=== PATIENT | female | born 1990 | race Caucasian/White ===

== ENCOUNTER 2016-08-25 17:01 | Emergency (ER) | payer MEDICAID ==
[~2016-08-25] VITALS: Ht 152.4 cm; Wt 58.0 kg
[~2016-08-25 17:01] MED LIST: ACET500C5 PO; FAMO-18 PO; HYDR-906 PO; ONDA4TAB8 PO
[2016-08-25 17:03] VITALS: Ht 152.4 cm; Wt 58.0 kg
[2016-08-25] MEDS ORDERED: ONDANSETRON (ODT) 4 MG TAB ODT STA (17:32)
--- NOTE | 2016-08-25 17:37 | ERD ---
ER Documentation Chief Complaint Date/Time DATE: 08/25/16 TIME: 17:33 Chief Complaint pt bib self with c/o fever, cough, diarrhea for a few days HPI This is a 25-year-old female presents emergency department for fever, cough, vomiting and diarrhea 2 days. Patient states she had a temperature max of 10 4 F last night and took Tylenol. Patient states she takes Tylenol which reduces the temperature however the fever continues to return. Patient states she has a dry nonproductive cough. One episode of vomiting and diarrhea last night. No vomiting or diarrhea today. Tolerating p.o. Denies chest pain, wheezing, shortness of breath or difficulty breathing. No difficulty swallowing or drooling. Denies dysuria or hematuria. No abdominal pain. Last menstrual period 08/12/16. ROS All systems reviewed and are negative except as per history of present illness. Medications Home Meds Active Scripts Ondansetron Hcl* (Zofran*) 4 Mg Tablet, 4 MG PO Q6H for NAUSEA AND/OR VOMITING, #15 TAB Prov:JONNA ORLANDO NP 08/25/16 Ondansetron Hcl* (Zofran*) 4 Mg Tablet, 4 MG PO Q6H for NAUSEA AND/OR VOMITING, #30 TAB Prov:KEYANA HORNE PA-C 07/12/16 Famotidine* (Pepcid*) 20 Mg Tablet, 20 MG PO BID for 14 Days, TAB Prov:KEYANA HORNEC 07/12/16 Hydrocodone/Acetaminophen ([place] 5-325 Tablet) 1 Each Tablet, 1 TAB PO Q6H Y for PAIN, #20 TAB Prov:KEYANA HORNE PA-C 07/12/16 Acetaminophen* (Tylophen*) 500 Mg Capsule, 1 CAP PO Q6H Y for PAIN AND OR ELEVATED TEMP, #30 CAP Prov:KEYANA HORNE PA-C 03/01/16 Allergies Allergies: Coded Allergies: tramadol (Verified Allergy, Unknown, 07/12/16) PMhx/Soc History of Surgery: No Anesthesia Reaction: No Hx Neurological Disorder: No Hx Respiratory Disorders: No Hx Cardiac Disorders: No Hx Psychiatric Problems: No Hx Miscellaneous Medical Probl: Yes (gallstones.) Hx Alcohol Use: No Hx Substance Use: No Hx Tobacco Use: No Physical Exam Vitals Vital Signs Date Time Temp Pulse Resp B/P Pulse Ox O2 Delivery O2 Flow Rate FiO2 08/25/16 20:25 98.5 82 16 115/62 98 Room Air 08/25/16 17:03 98.5 86 16 117/66 98 Physical Exam Const: No acute distress, alert, smiling during exam Head: Atraumatic Eyes: Normal Conjunctiva ENT: Normal External Ears, Nose and Mouth. Erythema to posterior pharynx. TMs normal bilaterally. Neck: Full range of motion..~ No meningismus. Resp: Clear to auscultation bilaterally. No wheezing, rhonchi or crackles. No labored breathing. Cardio: Regular rate and rhythm, no murmurs Abd: Soft, non tender, non distended. Normal bowel sounds Skin: No petechiae or rashes Back: No midline or flank tenderness Ext: No cyanosis, or edema Neur: Awake and alert Psych: Normal Mood and Affect Results 24 hrs Laboratory Tests Test 08/25/16 17:46 Bedside Urine Blood Negative Bedside Urine Glucose (UA) Negative Bedside Urine Ketones (LAB) Negative Bedside Urine Leukocyte Esterase (L Negative Bedside Urine Nitrite (LAB) Negative Bedside Urine Protein (LAB) 1+ Bedside Urine pH (LAB) 6.5 Current Medications Medications (Trade) Dose Ordered Sig/Saida Route PRN Reason Start Time Stop Time Status Last Admin Dose Admin Ondansetron HCl (Zofran Odt) 4 mg ONCE STAT ODT 08/25/16 17:32 08/25/16 17:34 DC 08/25/16 17:47 Procedures/MDM ED COURSE: The patient was stable throughout ED course. I kept the patient and/or family informed of laboratory and diagnostic imaging results throughout the ED course. Laboratory Urine dip 1+ protein otherwise negative Urine negative Microbiology Influenza swab negative Strep pharyngitis negative MDM: 25-year-old female presents the emergency department for fever, cough, vomiting diarrhea 2 days. No fever upon arrival to ED. Temp is 98.5F. No vomiting or diarrhea today. Influenza and strep pharyngitis swabs are negative. Urine is negative for infection. No s/s respiratory distress. Vitals are stable. Low suspicion for pneumonia, pleural effusion, strep pharyngitis, otitis media, otitis externa, bowel obstruction or appendicitis. Patient is appropriate for outpatient management and instructed to follow up with PCP in the next 24-48hrs for reassessment. Return to ED for any new or worsening symptoms. Patient verbalizes understanding. All questions answered at discharge. Departure Diagnosis: Primary Impression: Viral gastroenteritis Condition: Stable JONNA ORLANDO NP Aug 25, 2016 17:37
[2016-08-25 17:45] LABS: URINE BLOOD (Dip) POC Negative (NEGATIVE)
[2016-08-25] MEDS ORDERED: ONDA4TAB8 PO (20:07)
[2016-08-25 20:25] VITALS: BP 115/62; PULSE 82; RESP 16; TEMP 98.5
== END 2016-08-25 20:29 | disposition home or self-care (01) ==
LOC: FTE 17:01
DX: J02.0 Streptococcal pharyngitis (principal); R11.2 Nausea with vomiting, unspecified
CPT/HCPCS: 81003; 87400; 87880; Z7502; Z7610; 99283

== ENCOUNTER 2016-09-15 10:22 | Emergency (ER) | payer MEDICAID ==
[~2016-09-15] VITALS: Ht 152.4 cm; Wt 57.0 kg
[2016-09-15 10:30] VITALS: Ht 152.4 cm; Wt 57.0 kg
[2016-09-15 11:22] LABS: URINE BLOOD (Dip) POC Negative (NEGATIVE)
[2016-09-15 11:51] LABS: ADD UMIC YES; URINE BILIRUBIN (Dip) NEGATIVE (NEGATIVE); URINE BLOOD (Dip) NEGATIVE (NEGATIVE); URINE COLOR LT. YELLOW (YELLOW); URINE GLUCOSE (Dip) NEGATIVE (NEGATIVE); URINE KETONES (Dip) NEGATIVE (NEGATIVE); URINE LEUKOCYTE ESTERASE (Dip) TRACE (NEGATIVE); URINE NITRITE (Dip) NEGATIVE (NEGATIVE); URINE TOTAL PROTEIN (Dip) NEGATIVE (NEGATIVE); URINE UROBILINOGEN (Dip) 0.2 E.U./dL (0.1-1.0)
[2016-09-15 11:53] LABS: ADD SCAN DIFF NO
[2016-09-15 11:58] LABS: BASOPHILS % 0.4 % (0.0-2.0); EOSINOPHILS # 0.1 10^3/ul (0.0-0.5); EOSINOPHILS % 0.9 % (0.0-7.0); HEMATOCRIT 37.5 % (37.0-47.0); HEMOGLOBIN 13.3 g/dl (12.0-16.0); LYMPHOCYTES # 1.4 10^3/ul (0.8-2.9); LYMPHOCYTES % 24.6 % (15.0-51.0); MEAN CORPUSCULAR HEMOGLOBIN 30.7 pg (29.0-33.0); MEAN CORPUSCULAR HGB CONC 35.5 g/dl (32.0-37.0); MEAN CORPUSCULAR VOLUME 86.6 fl (82.0-101.0); MEAN PLATELET VOLUME 10.6 fl (7.4-10.4); MONOCYTE # 0.5 10^3/ul (0.3-0.9); MONOCYTES % 8.4 % (0.0-11.0); NEUTROPHIL # 3.7 10^3/ul (1.6-7.5); NEUTROPHILS % 65.5 % (39.0-77.0); PLATELET COUNT 308 10^3/UL (140-415); RED BLOOD COUNT 4.33 10^6/ul (4.20-5.40); RED CELL DISTRIBUTION WIDTH 12.6 % (11.5-14.5); WHITE BLOOD COUNT 5.7 10^3/ul (4.8-10.8)
--- NOTE | 2016-09-15 11:59 | ERD ---
ER Documentation Chief Complaint Date/Time DATE: 09/15/16 TIME: 11:57 Chief Complaint pt bib family with c/o pelvic pain starting last night approx 5 wks preg HPI This a 25-year-old female who presents to the emergency department today complaining of some pelvic pain that started last night. Patient states she is a proximal 5 weeks . States the pain started when she was working in the [employer] department last night. Denies any vaginal bleeding, fevers or chills or dysuria ROS All systems reviewed and are negative except as per history of present illness. Medications Home Meds Active Scripts Nitrofurantoin Monohyd Macrocr* (Macrobid*) 100 Mg Capsr, 100 MG PO BID for 7 Days, CAP Prov:KEYANA HORNE PA-C 09/15/16 Acetaminophen* (Tylophen*) 500 Mg Capsule, 1 CAP PO Q6H Y for PAIN AND OR ELEVATED TEMP, #30 CAP Prov:KEYANA HORNEC 09/15/16 Ondansetron Hcl* (Zofran*) 4 Mg Tablet, 4 MG PO Q6H for NAUSEA AND/OR VOMITING, #15 TAB Prov:JONNA ORLANDO NP 08/25/16 Ondansetron Hcl* (Zofran*) 4 Mg Tablet, 4 MG PO Q6H for NAUSEA AND/OR VOMITING, #30 TAB Prov:KEYANA HORNEC 07/12/16 Famotidine* (Pepcid*) 20 Mg Tablet, 20 MG PO BID for 14 Days, TAB Prov:KEYANA HORNEC 07/12/16 Hydrocodone/Acetaminophen ([place] 5-325 Tablet) 1 Each Tablet, 1 TAB PO Q6H Y for PAIN, #20 TAB Prov:KEYANA HORNEC 07/12/16 Acetaminophen* (Tylophen*) 500 Mg Capsule, 1 CAP PO Q6H Y for PAIN AND OR ELEVATED TEMP, #30 CAP Prov:KEYANA HORNEC 03/01/16 Allergies Allergies: Coded Allergies: tramadol (Verified Allergy, Unknown, 07/12/16) PMhx/Soc Medical and Surgical Hx: pt denies Medical Hx, pt denies Surgical Hx History of Surgery: No Anesthesia Reaction: No Hx Neurological Disorder: No Hx Respiratory Disorders: No Hx Cardiac Disorders: No Hx Psychiatric Problems: No Hx Miscellaneous Medical Probl: Yes (gallstones. ectopic ) Hx Alcohol Use: No Hx Substance Use: No Hx Tobacco Use: No Physical Exam Vitals Vital Signs Date Time Temp Pulse Resp B/P Pulse Ox O2 Delivery O2 Flow Rate FiO2 09/15/16 10:30 98.0 77 16 109/58 99 Physical Exam Const: No acute distress Head: Atraumatic Eyes: Normal Conjunctiva ENT: Normal External Ears, Nose and Mouth. Neck: Full range of motion..~ No meningismus. Resp: Clear to auscultation bilaterally Cardio: Regular rate and rhythm, no murmurs Abd: Soft, mild suprapubic tenderness. non distended. Normal bowel sounds. No right lower quadrant pain. No left lower quadrant pain. No tenderness at McBurney's. Skin: No petechiae or rashes Neur: Awake and alert Psych: Normal Mood and Affect Result Diagram: 09/15/16 1140 Results 24 hrs Laboratory Tests Test 09/15/16 11:25 09/15/16 11:40 09/15/16 11:45 Bedside Urine Blood Negative Bedside Urine Glucose (UA) Negative Bedside Urine Ketones (LAB) Negative Bedside Urine Leukocyte Esterase (L Negative Bedside Urine Nitrite (LAB) Negative Bedside Urine Protein (LAB) Negative Bedside Urine pH (LAB) 6.0 Basophils # 0.010^3/ul Basophils % 0.4% Beta HCG, Quantitative 1815.7mIU/ml Eosinophils # 0.110^3/ul Eosinophils % 0.9% Hematocrit 37.5% Hemoglobin 13.3g/dl Lymphocytes # 1.410^3/ul Lymphocytes % 24.6% Mean Corpuscular Hemoglobin 30.7pg Mean Corpuscular Hemoglobin Concent 35.5g/dl Mean Corpuscular Volume 86.6fl Mean Platelet Volume 10.6fl Monocytes # 0.510^3/ul Monocytes % 8.4% Neutrophils # 3.710^3/ul Neutrophils % 65.5% Nucleated Red Blood Cells # 0.010^3/ul Nucleated Red Blood Cells % 0.0/100WBC Platelet Count 21206^3/UL Red Blood Count 4.3310^6/ul Red Cell Distribution Width 12.6% White Blood Count 5.710^3/ul Urine Bacteria OCCASIONAL Urine Bilirubin NEGATIVE Urine Clarity CLEAR Urine Color LT. YELLOW Urine Glucose NEGATIVE% Urine Hemoglobin NEGATIVE Urine Ketones NEGATIVE Urine Leukocyte Esterase TRACE Urine Microscopic RBC NONE SEEN/HPF Urine Microscopic WBC 0-2/HPF Urine Nitrite NEGATIVE Urine Specific [place] 1.010 Urine Squamous Epithelial Cells FEW Urine Total Protein NEGATIVE Urine Urobilinogen 0.2 E.U./dL Urine pH 6.0 Patient: MICHAEL LEE : 1990 Age: 25 Sex: F MR #: [id number] DOS: 09/15/16 1139 Ordering MD: KEYANA HORNE PA-C Location: [facility] Room/Bed: PROCEDURE: US Pelvis. CLINICAL INDICATION: Pelvic pain TECHNIQUE: Multiple sonographic images of the pelvis were obtained utilizing a transabdominal and endovaginal technique. The images were reviewed on a PACS workstation. COMPARISON: 03/04/2016 FINDINGS: The uterus is visualized and measures 7.1 x 4 x 4.8 cm in size. A small sonolucent structure in the endometrium is seen. There is a small amount of free fluid adjacent to the left ovary. The right ovary has a normal echotexture and measures 2.1 x 1.3 x 1.6 cm. Simple left ovarian cysts are seen with the largest measuring 2.3 x 1.8 cm in size which may represent dominant follicles. The remainder of the left ovary has a normal echotexture and measures 4.5 x 3.1 x 2.8 cm. No adnexal masses are noted. IMPRESSION: Small sonolucency in the endometrium which may represent an early . Correlation with serial beta HCG levels is suggested as well as a short interval follow-up. RPTAT: HPNM Physician Stephanie Date Time Electronically viewed and signed by Physician Stephanie on 09/15/2016 12 :20 / CC: KEYANA HORNE PA-C Procedures/MDM This a A2 25-year-old female who presents to the emergency department today complaining of pelvic pain. Patient indicated she was 5 weeks . Did obtain a test here in the emergency department was positive. I then obtained a complete OB workup. Laboratory work shows no elevated white blood cell count. She is not anemic. Platelets are within normal limits. UA shows trace leukocyte Estrace. Patient does have some suprapubic pain and therefore I will give her a prescription for Beta quant hCG 1815.7 Rh status be positive Ultrasound shows a small sonolucency in the endometrium which may represent an early . There is a simple left ovarian cyst. There is a small amount of free fluid around the left ovary. There is no adnexal masses. Correlation with serial beta hCG levels was recommended. Patient may follow-up in 48 hours for a repeat beta quant if symptoms persist. Patient's pelvic pain may be related to a possible urinary tract infection versus pelvic pain and . Patient has no right lower quadrant and no left lower quadrant pain of low suspicion for tubo-ovarian abscess, ovarian torsion, acute surgical abdomen. She has no vaginal bleeding and I have lower suspicion for early failed or subchorionic hemorrhage. She declined Tylenol here in the emergency department. I will give her a prescription for home. At this time the patient is stable for discharge and outpatient management. Patient should follow up with their PCP in the next 1-2 days. They may return to the emergency department sooner for any persistent or worsening of symptoms. Patient understood and agreed with the plan. Departure Diagnosis: Primary Impression: Pelvic pain during Additional Impression: UTI (urinary tract infection) Urinary tract infection type: site unspecified Hematuria presence: without hematuria Qualified Code: N39.0 - Urinary tract infection without hematuria, site unspecified Condition: KEYANA Roldan PA-C Sep 15, 2016 11:59
[2016-09-15 12:06] LABS: BACTERIA,URINE OCCASIONAL; SQUAMOUS EPITHELIAL CELL,UR FEW; URINE RBCS NONE SEEN /HPF (0)
--- NOTE | 2016-09-15 12:20 | RADRPT ---
PROCEDURE: US Pelvis. CLINICAL INDICATION: Pelvic pain TECHNIQUE: Multiple sonographic images of the pelvis were obtained utilizing a transabdominal and endovaginal technique. The images were reviewed on a PACS workstation. COMPARISON: 03/04/2016 FINDINGS: The uterus is visualized and measures 7.1 x 4 x 4.8 cm in size. A small sonolucent structure in the endometrium is seen. There is a small amount of free fluid adjacent to the left ovary. The right ova ry has a normal echotexture and measures 2.1 x 1.3 x 1.6 cm. Simple left ovarian cysts are seen wit h the largest measuring 2.3 x 1.8 cm in size which may represent dominant follicles. The remainder of the left ovary has a normal echotexture and measures 4.5 x 3.1 x 2.8 cm. No adnexal masses are n oted. IMPRESSION: Small sonolucency in the endometrium which may represent an early . Correlation with seria l beta HCG levels is suggested as well as a short interval follow-up. RPTAT: HPNM Physician Stephanie Date Time Electronically viewed and signed by Physician Stephanie on 09/15/2016 12:20 /
[2016-09-15] MEDS ORDERED: ACET500C5 PO (13:19)
[2016-09-15] MEDS ORDERED: NITR-58 PO (13:20)
[2016-09-15 13:30] VITALS: BP 112/59; PULSE 75; RESP 16; TEMP 98
== END 2016-09-15 13:30 | disposition home or self-care (01) ==
LOC: FTE 10:22
DX: O26.891 Other specified pregnancy related conditions, first trimester (principal); R10.2 Pelvic and perineal pain; O23.41 Unspecified infection of urinary tract in pregnancy, first trimester; Z3A.01 Less than 8 weeks gestation of pregnancy
CPT/HCPCS: 36415; 76801; 76817; 81001; 84702; 85025; 86900; 86901; Z7502; 81003

== ENCOUNTER 2016-10-09 02:48 | Inpatient (IN) | payer MEDICAID ==
[~2016-10-09] VITALS: Ht 152.4 cm; Wt 58.2 kg
[~2016-10-09 02:48] MED LIST changes: +NITR-58 PO
[2016-10-09 02:56] VITALS: Ht 152.4 cm; Wt 58.2 kg
[2016-10-09] MEDS ORDERED: ACETAMINOPHEN 325 MG TAB PO ONE (07:00)
[2016-10-09 07:01] LABS: ADD SCAN DIFF NO
[2016-10-09 07:03] LABS: ADD UMIC YES; URINE BILIRUBIN (Dip) NEGATIVE (NEGATIVE); URINE BLOOD (Dip) NEGATIVE (NEGATIVE); URINE COLOR LT. YELLOW (YELLOW); URINE GLUCOSE (Dip) NEGATIVE (NEGATIVE); URINE KETONES (Dip) NEGATIVE (NEGATIVE); URINE LEUKOCYTE ESTERASE (Dip) TRACE (NEGATIVE); URINE NITRITE (Dip) NEGATIVE (NEGATIVE); URINE TOTAL PROTEIN (Dip) NEGATIVE (NEGATIVE); URINE UROBILINOGEN (Dip) 0.2 E.U./dL (0.1-1.0)
[2016-10-09 07:03] LABS: BASOPHILS % 0.2 % (0.0-2.0); EOSINOPHILS # 0.1 10^3/ul (0.0-0.5); EOSINOPHILS % 0.6 % (0.0-7.0); HEMATOCRIT 35.8 % (37.0-47.0); HEMOGLOBIN 12.6 g/dl (12.0-16.0); LYMPHOCYTES # 1.2 10^3/ul (0.8-2.9); LYMPHOCYTES % 11.5 % (15.0-51.0); MEAN CORPUSCULAR HEMOGLOBIN 30.4 pg (29.0-33.0); MEAN CORPUSCULAR HGB CONC 35.2 g/dl (32.0-37.0); MEAN CORPUSCULAR VOLUME 86.3 fl (82.0-101.0); MEAN PLATELET VOLUME 10.6 fl (7.4-10.4); MONOCYTE # 0.6 10^3/ul (0.3-0.9); MONOCYTES % 5.6 % (0.0-11.0); NEUTROPHIL # 8.8 10^3/ul (1.6-7.5); NEUTROPHILS % 81.6 % (39.0-77.0); PLATELET COUNT 315 10^3/UL (140-415); RED BLOOD COUNT 4.15 10^6/ul (4.20-5.40); RED CELL DISTRIBUTION WIDTH 12.3 % (11.5-14.5); WHITE BLOOD COUNT 10.8 10^3/ul (4.8-10.8)
[2016-10-09 07:13] LABS: ALBUMIN 3.9 g/dl (3.3-4.9)
[2016-10-09 07:14] LABS: POTASSIUM 4.1 mmol/L (3.5-5.1)
[2016-10-09 07:16] LABS: BILIRUBIN,INDIRECT 0.2 mg/dl (0-1.1); BILIRUBIN,TOTAL 0.2 mg/dl (0.2-1.3); CREATININE 0.55 mg/dl (0.44-1.00)
[2016-10-09 07:17] LABS: ALBUMIN/GLOBULIN RATIO 1.25; CALCIUM 9.8 mg/dl (8.4-10.2)
[2016-10-09 07:23] LABS: SQUAMOUS EPITHELIAL CELL,UR FEW; URINE RBCS NONE SEEN /HPF (0)
--- NOTE | 2016-10-09 07:58 | RADRPT ---
PROCEDURE: US Abdomen. CLINICAL INDICATION: abdominal pain TECHNIQUE: Multiple real-time images were acquired of the patient's right upper quadrant abdomen a nd retroperitoneum utilizing a high resolution transducer. COMPARISON: 07/12/2016 FINDINGS: The liver demonstrates normal echogenicity. The liver is normal in size and no focal solid lesions are seen. The liver measures 13.2 cm in length. The portal vein is patent with normal direction of f low. No intrahepatic biliary dilatation is seen. The gallbladder is filled with multiple calcified stones. The gallbladder wall was not well seen. Th e common bile duct measures 8 mm in maximal dimension. The visualized portions of the pancreas are unremarkable. The tail of the pancreas is not seen. No free fluid is identified. The right kidney is normal in size, and demonstrate normal echogenicity and cortical thickness. The right kidney measures 13.2 cm in long dimension. There is no evidence of hydronephrosis. There are no kidney stones. RPTAT: AA IMPRESSION: Gallbladder filled with calcified stones, which limits its evaluation. The gallbladder wall is not well seen. Dilated CBD measuring 8 mm. .Preet Nunez MD, MD Date Time Electronically viewed and signed by .Preet Nunez MD, on 10/09/2016 07:54 .S/
--- NOTE | 2016-10-09 08:48 | ERA ---
ER Documentation Chief Complaint Date/Time DATE: 10/09/16 TIME: 08:40 Chief Complaint C/O RT FLANK PAIN +NAUSEA 8 WEEKS HPI 26-year-old female who is approximately 8 weeks is complaining of right upper quadrant abdominal pain and right flank pain 2 days. Patient reports nausea but no vomiting. She has history of gallstones. She did not take any medication at home for pain. She also has slight dysuria. Denies fever or chills. Denies diarrhea or constipation. Denies vaginal bleeding. ROS All systems reviewed and are negative except as per history of present illness. Medications Home Meds Active Scripts Nitrofurantoin Monohyd Macrocr* (Macrobid*) 100 Mg Capsr, 100 MG PO BID for 7 Days, CAP Prov:KEYANA HORNEC 09/15/16 Acetaminophen* (Tylophen*) 500 Mg Capsule, 1 CAP PO Q6H Y for PAIN AND OR ELEVATED TEMP, #30 CAP Prov:KEYANA HORNEC 09/15/16 Ondansetron Hcl* (Zofran*) 4 Mg Tablet, 4 MG PO Q6H for NAUSEA AND/OR VOMITING, #15 TAB Prov:JONNA ORLANDO NP 08/25/16 Ondansetron Hcl* (Zofran*) 4 Mg Tablet, 4 MG PO Q6H for NAUSEA AND/OR VOMITING, #30 TAB Prov:KEYANA HORNEC 07/12/16 Famotidine* (Pepcid*) 20 Mg Tablet, 20 MG PO BID for 14 Days, TAB Prov:KEYANA HORNEC 07/12/16 Hydrocodone/Acetaminophen ([place] 5-325 Tablet) 1 Each Tablet, 1 TAB PO Q6H Y for PAIN, #20 TAB Prov:KEYANA HORNEC 07/12/16 Acetaminophen* (Tylophen*) 500 Mg Capsule, 1 CAP PO Q6H Y for PAIN AND OR ELEVATED TEMP, #30 CAP Prov:KEYANA HORNEC 03/01/16 Allergies Allergies: Coded Allergies: tramadol (Verified Allergy, Unknown, 07/12/16) PMhx/Soc Medical and Surgical Hx: pt denies Medical Hx, pt denies Surgical Hx History of Surgery: No Anesthesia Reaction: No Hx Neurological Disorder: No Hx Respiratory Disorders: No Hx Cardiac Disorders: No Hx Psychiatric Problems: No Hx Miscellaneous Medical Probl: Yes (gallstones. ectopic ) Hx Alcohol Use: No Hx Substance Use: No Hx Tobacco Use: No Smoking Status: Never smoker Physical Exam Vitals Vital Signs Date Time Temp Pulse Resp B/P Pulse Ox O2 Delivery O2 Flow Rate FiO2 10/09/16 02:56 97.0 67 20 112/51 97 Physical Exam General impression: Well-developed, well-nourished. Alert, oriented, in no acute distress Head: Normocephalic, atraumatic. Eyes: PERRL, EOM normal. Conjunctiva not injected. Respiration: Normal respiratory effort. Lungs clear to auscultate bilaterally. No wheezes, rales or rhonchi. Cardiovascular: Regular rate and rhythm. No murmurs or extra heart sounds. Abdomen: Abdomen normal to inspection. Right upper quadrant tenderness, no other tenderness. No rebound or guarding. No masses or organomegaly. Bowel sounds normal. Back: Normal to inspection. No midline spine tenderness. Right CVA tenderness. Neuro: Mental status normal, speech normal. [employer] grossly intact. Skin: Normal turgor. No rash or lesions. Psych: Normal mood and affect. Result Diagram: 10/09/16 0650 10/09/16 0650 Results 24 hrs Laboratory Tests Test 10/09/16 06:10 10/09/16 06:50 Urine Bilirubin NEGATIVE Urine Clarity CLEAR Urine Color LT. YELLOW Urine Glucose NEGATIVE% Urine Hemoglobin NEGATIVE Urine Ketones NEGATIVE Urine Leukocyte Esterase TRACE Urine Microscopic RBC NONE SEEN/HPF Urine Microscopic WBC 0-2/HPF Urine Nitrite NEGATIVE Urine Specific [place] 1.010 Urine Squamous Epithelial Cells FEW Urine Total Protein NEGATIVE Urine Urobilinogen 0.2 E.U./dL Urine pH 6.0 Alanine Aminotransferase (ALT/SGPT) 32IU/L Albumin 3.9g/dl Albumin/Globulin Ratio 1.25 Alkaline Phosphatase 63IU/L Anion Gap 14 Aspartate Amino Transf (AST/SGOT) 29IU/L Basophils # 0.010^3/ul Basophils % 0.2% Beta HCG, Quantitative 001793.0mIU/ml Blood Urea Nitrogen 9mg/dl Calcium Level 9.8mg/dl Carbon Dioxide Level 28mmol/L Chloride Level 105mmol/L Creatinine 0.55mg/dl Direct Bilirubin 0.00mg/dl Eosinophils # 0.110^3/ul Eosinophils % 0.6% Globulin 3.10g/dl Glucose Level 93mg/dl Hematocrit 35.8% Hemoglobin 12.6g/dl Indirect Bilirubin 0.2mg/dl Lipase 2948U/L Lymphocytes # 1.210^3/ul Lymphocytes % 11.5% Mean Corpuscular Hemoglobin 30.4pg Mean Corpuscular Hemoglobin Concent 35.2g/dl Mean Corpuscular Volume 86.3fl Mean Platelet Volume 10.6fl Monocytes # 0.610^3/ul Monocytes % 5.6% Neutrophils # 8.810^3/ul Neutrophils % 81.6% Nucleated Red Blood Cells # 0.010^3/ul Nucleated Red Blood Cells % 0.0/100WBC Platelet Count 01705^3/UL Potassium Level 4.1mmol/L Red Blood Count 4.1510^6/ul Red Cell Distribution Width 12.3% Sodium Level 143mmol/L Total Bilirubin 0.2mg/dl Total Protein 7.0g/dl White Blood Count 10.810^3/ul Current Medications Medications (Trade) Dose Ordered Sig/Saida Route PRN Reason Start Time Stop Time Status Last Admin Dose Admin Acetaminophen (Tylenol Tab) 650 mg ONCE ONCE PO 10/09/16 07:00 10/09/16 07:01 DC 10/09/16 07:01 PROCEDURE: US Abdomen. CLINICAL INDICATION: abdominal pain TECHNIQUE: Multiple real-time images were acquired of the patient's right upper quadrant abdomen and retroperitoneum utilizing a high resolution transducer. COMPARISON: 07/12/2016 FINDINGS: The liver demonstrates normal echogenicity. The liver is normal in size and no focal solid lesions are seen. The liver measures 13.2 cm in length. The portal vein is patent with normal direction of flow. No intrahepatic biliary dilatation is seen. The gallbladder is filled with multiple calcified stones. The gallbladder wall was not well seen. The common bile duct measures 8 mm in maximal dimension. The visualized portions of the pancreas are unremarkable. The tail of the pancreas is not seen. No free fluid is identified. The right kidney is normal in size, and demonstrate normal echogenicity and cortical thickness. The right kidney measures 13.2 cm in long dimension. There is no evidence of hydronephrosis. There are no kidney stones. RPTAT: AA IMPRESSION: Gallbladder filled with calcified stones, which limits its evaluation. The gallbladder wall is not well seen. Dilated CBD measuring 8 mm. .Preet Nunez MD, Date Time Electronically viewed and signed by .Preet Nunez MD, on 10/09/2016 07: 54 .S/ CC: VERONICA RODRIGUEZ [employer] Procedures/MDM Well-appearing 26-year-old female who is approximately 8 weeks reports right upper quadrant abdominal pain 2 days. Gallbladder ultrasound showed gallbladder full of stones, common bile duct is dilated at 8 mm. WBC is 10.8, with slightly higher neutrophil at 81.6%. No elevated AST or ALT. However, lipase is significantly elevated at 2948. High suspicion for cholelithiasis and cholecystitis with obstruction. UA showed trace leukocyte, otherwise negative. No bacteria is seen. Low suspicion for urinary tract infection. Her beta hCG quant is 102297.0, within normal range for her gestational age. I have consulted Dr. Retana regarding this patient. Patient will be admitted for further evaluation or management. Patient transferred to ED 1 for admission. Patient condition at time of transfer is stable. Departure Diagnosis: Primary Impression: Cholelithiasis and acute cholecystitis with obstruction Condition: Good VERONICA RODRIGUEZ NP Oct 09, 2016 08:48
[2016-10-09] MEDS ORDERED: morphine 4 MG/ML VIAL IV STA (09:25)
[2016-10-09] MEDS ORDERED: ONDANSETRON 4 MG INJ IV STA (09:25)
[2016-10-09] MEDS ORDERED: SOD CHLORIDE 0.9% 1,000 ML IV ONE (09:30)
[2016-10-09] MEDS ORDERED: ONDANSETRON 4 MG INJ IV PRN ×2 (11:00→16:00)
[2016-10-09] MEDS ORDERED: ACETAMINOPHEN 325 MG TAB PO PRN ×2 (11:00→16:00)
--- NOTE | 2016-10-09 12:50 | CONS ---
Date/Time of Note Date/Time of Note DATE: 10/09/16 TIME: 12:40 Assessment/Plan Assessment/Plan Additional Assessment/Plan Abdomina pain/nausea/vomiting Pancreatitis Rule out choledocholithiasis IVF Hydration Nausea and pain control NPO till pain free Review MRCP ERCP if clinically indicated, pt advised of R/B/A of procedure and she provides informed consent to proceed Monitor LFTs, amylase, lipase Intrauterine Management per BAGGING SALVAGER Further recommendations depend on clinical course Patient seen in collaboration with Dr. Higgins Consultation Date/Type/Reason Admit Date/Time Type of Consultation: Gastroenteritis Reason for Consultation Pancreatitis Hx of Present Illness Mrs Jayashree Wilson is a 26-year-old woman that presents to the ED secondary to intense abdominal pain that started earlier in the a.m. Patient denies nausea and vomiting. Patient denies sick contact, travel outside [place], alcohol consumption, and new medication. Patient reports previous episode in July and the previous episode of cholecystitis close to 5 years ago. The patient declined surgical cholecystectomy. At bedside patient reports right upper quadrant abdominal pain and epigastric pain. MRCP in process and patient currently awaiting transfer to unit. Past Medical History Medical History: no pertinent history Past Surgical History Past Surgical Hx: noncontributory Social History Alcohol Use: none Smoking Status: Never smoker Exam/Review of Systems Vital Signs Vitals Vital Signs Date Time Temp Pulse Resp B/P Pulse Ox O2 Delivery O2 Flow Rate FiO2 10/09/16 02:56 97.0 67 20 112/51 97 Exam Constitutional: alert, oriented, well developed Psych: nl mood/affect Head: normocephalic Eyes: EOMI, nl conjunctiva, nl lids ENMT: nl external ears & nose, nl lips & teeth, nl nasal mucosa & septum Respiratory: clear to auscultation, normal air movement Cardiovascular: regular rate and rhythm Gastrointestinal: soft, right upper quadrant, epigastric tenderness Musculoskeletal: nl extremities to inspection Neurological: GLOST PLACER II-XII intact Results Result Diagram: 10/09/16 0650 10/09/16 0650 Results 24 hrs Laboratory Tests Test 10/09/16 06:10 10/09/16 06:50 Urine Bilirubin NEGATIVE Urine Clarity CLEAR Urine Color LT. YELLOW Urine Glucose NEGATIVE Urine Hemoglobin NEGATIVE Urine Ketones NEGATIVE Urine Leukocyte Esterase TRACE H Urine Microscopic RBC NONE SEEN Urine Microscopic WBC 0-2 Urine Nitrite NEGATIVE Urine Specific [place] 1.010 Urine Squamous Epithelial Cells FEW Urine Total Protein NEGATIVE Urine Urobilinogen 0.2 E.U./dL Urine pH 6.0 Alanine Aminotransferase (ALT/SGPT) 32 Albumin 3.9 Albumin/Globulin Ratio 1.25 Alkaline Phosphatase 63 Anion Gap 14 Aspartate Amino Transf (AST/SGOT) 29 Basophils # 0.0 Basophils % 0.2 Beta HCG, Quantitative 412562.0 Blood Urea Nitrogen 9 Calcium Level 9.8 Carbon Dioxide Level 28 Chloride Level 105 Creatinine 0.55 Direct Bilirubin 0.00 Eosinophils # 0.1 Eosinophils % 0.6 Globulin 3.10 Glucose Level 93 Hematocrit 35.8 L Hemoglobin 12.6 Indirect Bilirubin 0.2 Lipase 2948 H Lymphocytes # 1.2 Lymphocytes % 11.5 L Mean Corpuscular Hemoglobin 30.4 Mean Corpuscular Hemoglobin Concent 35.2 Mean Corpuscular Volume 86.3 Mean Platelet Volume 10.6 H Monocytes # 0.6 Monocytes % 5.6 Neutrophils # 8.8 H Neutrophils % 81.6 H Nucleated Red Blood Cells # 0.0 Nucleated Red Blood Cells % 0.0 Platelet Count 315 Potassium Level 4.1 Red Blood Count 4.15 L Red Cell Distribution Width 12.3 Sodium Level 143 Total Bilirubin 0.2 Total Protein 7.0 White Blood Count 10.8 # SAUMYA STOCK Oct 09, 2016 12:50
[2016-10-09 13:21] VITALS: TEMP 98.6
[2016-10-09 14:04] VITALS: BP 101/54; PULSE 61; RESP 18
--- NOTE | 2016-10-09 14:36 | EN ---
Date/Time of Note Date/Time of Note DATE: 10/09/16 TIME: 14:36 ER Progress Note I spoke with Dr. Plasencia, who agreed to see the patient as an inpatient. He is aware that she is 8 weeks . He is also aware of her gallstone pancreatitis for which he will evaluate. Patient is to be admitted to the hospitalist service for further treatment. HEBERT YEE Oct 09, 2016 14:36
[2016-10-09] MEDS: D5W-0.45 NACL + KCL 20 MEQ 1,000 ML IV SCH (15:46)
[2016-10-09] MEDS ORDERED: ACETAMINOPHEN 650 MG SUPP PR PRN (16:00)
[2016-10-09] MEDS ORDERED: NACL 0.9% 3 ML SYG IV SCH (16:00)
--- NOTE | 2016-10-09 18:29 | RADRPT ---
PROCEDURE: OB Ultrasound. CLINICAL INDICATION: Positive test. Pelvic pain. TECHNIQUE: Ultrasound of the pelvis was performed with transabdominal sonography in the axial and sagittal planes. COMPARISON: No prior study is available for comparison. FINDINGS: There is a single intrauterine gestational sac. pole and yolk sac are present. There is heart motion. heart rate is 163 beats per minute. [place]-rump length is 1.36 cm. Mean sac diameter is 3.25 cm. Menstrual age by ultrasound dates is 8 weeks 0 days. This indicates an expected date of delivery of 05/21/2017. The right ovary is not visualized. The left ovary appears normal measuring 4.0 x 2.5 x 2.5 cm. Color Doppler and pulsed Doppler sonography demonstrate normal flow to the left ovary. There is no other pelvic mass or free fluid. IMPRESSION: 1. Single live intrauterine gestation of 8 weeks 0 days menstrual age by ultrasound dates. 2. Expected date of delivery is 05/21/2017. 3. Right ovary not visualized. RPTAT: QQ .Juancarlos Mcneill MD, Date Time Electronically viewed and signed by .Juancarlos Mcneill MD, on 10/09/2016 18:29 .R/
--- NOTE | 2016-10-09 19:27 | CONS ---
Date/Time of Note Date/Time of Note DATE: 10/09/16 TIME: 19:15 Consultation Date/Type/Reason Admit Date/Time Oct 09, 2016 at 10:41 Initial Consult Date October 09, 2006 Obstetrical consultation Type of Consultation: Gastroenteritis Reason for Consultation This patient is a 26-year-old 4 para 1 2 whose last menstrual period was in August 12, 2016. About 8 weeks presents to the ED secondary to intense abdominal pain that started earlier in the a.m. Patient denies nausea and vomiting. Patient denies sick contact, travel outside [place], alcohol consumption, and new medication. Patient reports previous episode in July and the previous episode of cholecystitis close to 5 years ago. The patient declined surgical cholecystectomy. At bedside patient reports right upper quadrant abdominal pain and epigastric pain. On examination she is a pleasant lady. Her ear nose throat appear to be normal. Neck is normal no neck vein distention no thyromegaly no lymph node enlargement anywhere in the body chest is clear heart normal sinus rhythm. Breasts are soft free of masses nipples are intact. . Abdomen is soft some tenderness on the right upper quadrant mild tenderness over the area of the no CVA. Extremity no edema no varicosities knee-jerk reflexes are normal. On pelvic examination vulva vagina were normal cervix is normal not dilated the uterus is about 7-8 weeks size adnexa was appears to be normal size no tenderness no enlargement Laboratory Tests Test 10/09/16 06:10 10/09/16 06:50 Urine Bilirubin NEGATIVE Urine Clarity CLEAR Urine Color LT. YELLOW Urine Glucose NEGATIVE% Urine Hemoglobin NEGATIVE Urine Ketones NEGATIVE Urine Leukocyte Esterase TRACE Urine Microscopic RBC NONE SEEN/HPF Urine Microscopic WBC 0-2/HPF Urine Nitrite NEGATIVE Urine Specific [place] 1.010 Urine Squamous Epithelial Cells FEW Urine Total Protein NEGATIVE Urine Urobilinogen 0.2 E.U./dL Urine pH 6.0 Alanine Aminotransferase (ALT/SGPT) 32IU/L Albumin 3.9g/dl Albumin/Globulin Ratio 1.25 Alkaline Phosphatase 63IU/L Anion Gap 14 Aspartate Amino Transf (AST/SGOT) 29IU/L Basophils # 0.010^3/ul Basophils % 0.2% Beta HCG, Quantitative 300379.0mIU/ml Blood Urea Nitrogen 9mg/dl Calcium Level 9.8mg/dl Carbon Dioxide Level 28mmol/L Chloride Level 105mmol/L Creatinine 0.55mg/dl Direct Bilirubin 0.00mg/dl Eosinophils # 0.110^3/ul Eosinophils % 0.6% Globulin 3.10g/dl Glucose Level 93mg/dl Hematocrit 35.8% Hemoglobin 12.6g/dl Indirect Bilirubin 0.2mg/dl Lipase 2948U/L Lymphocytes # 1.210^3/ul Lymphocytes % 11.5% Mean Corpuscular Hemoglobin 30.4pg Mean Corpuscular Hemoglobin Concent 35.2g/dl Mean Corpuscular Volume 86.3fl Mean Platelet Volume 10.6fl Monocytes # 0.610^3/ul Monocytes % 5.6% Neutrophils # 8.810^3/ul Neutrophils % 81.6% Nucleated Red Blood Cells # 0.010^3/ul Nucleated Red Blood Cells % 0.0/100WBC Platelet Count 88968^3/UL Potassium Level 4.1mmol/L Red Blood Count 4.1510^6/ul Red Cell Distribution Width 12.3% Sodium Level 143mmol/L Total Bilirubin 0.2mg/dl Total Protein 7.0g/dl White Blood Count 10.810^3/ul Current Medications Medications (Trade) Dose Ordered Sig/Saida Route PRN Reason Start Time Stop Time Status Last Admin Dose Admin Acetaminophen 650 mg 650 mg ONCE ONCE PO 10/09/16 07:00 10/09/16 07:01 DC 10/09/16 07:01 650 MG Sodium Chloride (NS) 1,000 ml @ 1,000 mls/hr Q1H ONCE IV 10/09/16 09:30 10/09/16 10:29 DC 10/09/16 09:41 1,000 MLS/HR Morphine Sulfate (morphine) 4 mg ONCE STAT IV 10/09/16 09:25 10/09/16 09:28 DC Ondansetron HCl (Zofran Inj) 4 mg ONCE STAT IV 10/09/16 09:25 10/09/16 09:27 DC 10/09/16 09:41 4 MG Ondansetron HCl (Zofran Inj) 4 mg BRIDGE ORDER PRN IV NAUSEA AND/OR VOMITING 10/09/16 11:00 10/09/16 15:51 DC Acetaminophen 650 mg 650 mg ER BRIDGE PRN PO MILD PAIN/FEVER 10/09/16 11:00 10/09/16 15:51 DC Potassium Chloride/Dextrose/ Sod Cl (D5-1/2ns + KCl 20 Meq) 1,000 ml @ 80 mls/hr [id number] IV 10/09/16 15:46 IV Flush (NS 3 ml) 3 ml PER PROTOCOL IV 10/09/16 16:00 Ondansetron HCl (Zofran Inj) 4 mg Q6H PRN IV NAUSEA AND/OR VOMITING 10/09/16 16:00 Acetaminophen (Tylenol Tab) 650 mg Q6H PRN PO PAIN LEVEL 1-3 OR FEVER 10/09/16 16:00 Acetaminophen (Tylenol Supp) 650 mg Q6H PRN [place] PAIN LEVEL 1-3 OR FEVER 10/09/16 16:00 24 HR Interval Summary Constitutional: No chills, No diaphoresis, No disoriented, No febrile, No improved, No no complaints, No other, No poor po, No requiring IVF, No requiring O2 Detailed Summary Eyes: other (Mostly right upper quadrant, no rebound tenderness, no CVA tenderness), No discharge, No no complaints, No pain, No redness, No visual change ENT: No bleeding, No congestion, No discharge, No dysphagia, No no complaints, No other, No pain, No sore throat Respiratory: No cough, No no complaints, No other, No pain, No pleuritic pain, No shortness of breath, No sputum, No wheezing Cardiovascular: No chest pain, No edema, No lightheadedness, No no complaints, No orthopenea, No other, No palpitations, No paroxysmal nocturnal dyspnea Gastrointestinal: No blood, No constipation, No decreased appetite, No diarrhea , No flatus, No nausea, No no complaints, No other, No pain, No passing stool, No vomiting Genitourinary: other (Normal pelvic examination no adnexal mass which measures about 6-1/2-7 weeks size), No bleeding, No discharge, No dysuria, No flank pain, No hematuria, No no complaints Musculoskeletal: No back pain, No bone/joint pain, No neck pain, No no complaints, No other, No restricted range of motion, No swelling Skin: No bruising, No erythema, No laceration, No no complaints, No other, No pruritis, No rash, No skin lesions Endocrine: No dry skin, No no complaints, No other, No polydypsia, No polyuria , No temp intolerance Exam/Review of Systems Vital Signs Vitals Vital Signs Date Time Temp Pulse Resp B/P Pulse Ox O2 Delivery O2 Flow Rate FiO2 10/09/16 14:04 98.5 61 18 101/54 100 10/09/16 13:21 Room Air Results Result Diagram: 10/09/16 0650 10/09/16 0650 Results 24 hrs Laboratory Tests Test 10/09/16 06:10 10/09/16 06:50 Urine Bilirubin NEGATIVE Urine Clarity CLEAR Urine Color LT. YELLOW Urine Glucose NEGATIVE Urine Hemoglobin NEGATIVE Urine Ketones NEGATIVE Urine Leukocyte Esterase TRACE H Urine Microscopic RBC NONE SEEN Urine Microscopic WBC 0-2 Urine Nitrite NEGATIVE Urine Specific [place] 1.010 Urine Squamous Epithelial Cells FEW Urine Total Protein NEGATIVE Urine Urobilinogen 0.2 E.U./dL Urine pH 6.0 Alanine Aminotransferase (ALT/SGPT) 32 Albumin 3.9 Albumin/Globulin Ratio 1.25 Alkaline Phosphatase 63 Anion Gap 14 Aspartate Amino Transf (AST/SGOT) 29 Basophils # 0.0 Basophils % 0.2 Beta HCG, Quantitative 517714.0 Blood Urea Nitrogen 9 Calcium Level 9.8 Carbon Dioxide Level 28 Chloride Level 105 Creatinine 0.55 Direct Bilirubin 0.00 Eosinophils # 0.1 Eosinophils % 0.6 Globulin 3.10 Glucose Level 93 Hematocrit 35.8 L Hemoglobin 12.6 Indirect Bilirubin 0.2 Lipase 2948 H Lymphocytes # 1.2 Lymphocytes % 11.5 L Mean Corpuscular Hemoglobin 30.4 Mean Corpuscular Hemoglobin Concent 35.2 Mean Corpuscular Volume 86.3 Mean Platelet Volume 10.6 H Monocytes # 0.6 Monocytes % 5.6 Neutrophils # 8.8 H Neutrophils % 81.6 H Nucleated Red Blood Cells # 0.0 Nucleated Red Blood Cells % 0.0 Platelet Count 315 Potassium Level 4.1 Red Blood Count 4.15 L Red Cell Distribution Width 12.3 Sodium Level 143 Total Bilirubin 0.2 Total Protein 7.0 White Blood Count 10.8 # Medications Medications Current Medications Potassium Chloride/Dextrose/ Sod Cl (D5-1/2ns + KCl 20 Meq) 1,000 ml @ 80 mls/ hr [id number] IV ; Start 10/09/16 at 15:46 Ondansetron HCl (Zofran Inj) 4 mg Q6H PRN IV NAUSEA AND/OR VOMITING; Start at 16:00 Acetaminophen (Tylenol Tab) 650 mg Q6H PRN PO PAIN LEVEL 1-3 OR FEVER; Start at 16:00 Acetaminophen (Tylenol Supp) 650 mg Q6H PRN [place] PAIN LEVEL 1-3 OR FEVER; Start 10/09/16 at 16:00 SEBASTIÁN ALICEA MD Oct 09, 2016 19:25
[2016-10-09 19:54] VITALS: BP 101/51; RESP 16
--- NOTE | 2016-10-09 20:12 | RADRPT ---
PROCEDURE: MRCP. CLINICAL INDICATION: Right upper quadrant abdomen pain. History of gallstones. 8 weeks . TECHNIQUE: MRCP was performed. The following sequences were obtained: Three plane gradient echo localizers, coronal gradient echo images, breath hold axial T2-weighted fat saturation images, michael nal T2-weighted images, axial 3-D LAVA images, axial T2-weighted breath hold fast spin echo images, and 3-D coronal rotating MIP images of the biliary tree. COMPARISON: Gallbladder ultrasound done earlier the same day which demonstrated gallstones in the gallbladder and dilated common bile duct measuring 8 mm. FINDINGS: The liver is normal in size. There is normal signal intensity within the liver. There is no focal hepatic lesion. The spleen is normal in size and homogeneous in signal intensity. As seen on prior ultrasound, gallstones are present in the gallbladder. There is no gallbladder wal l thickening or fluid around the gallbladder. The common bile duct is now borderline dilated measur ing 6 mm in diameter. There is no filling defect to suggest common bile duct stone. The pancreatic duct is normal. The pancreas is unremarkable with no mass or evidence of pancreatitis. The kidneys are grossly normal. The abdominal aorta is not dilated. IMPRESSION: 1. Gallstones in the gallbladder. No evidence of cholecystitis. 2. Borderline dilated common bile duct measuring 6 mm. No obstructing lesion visualized. 3. Otherwise unremarkable study. RPTAT: QQ .Juancarlos Mcneill MD, Date Time Electronically viewed and signed by .uJancarlos Mcneill MD, on 10/09/2016 20:12 .R/
--- NOTE | 2016-10-09 20:41 | HP ---
DATE OF ADMISSION: 10/09/2016 CONSULTANTS: 1. OB laborist. 2. [employer]. CHIEF COMPLAINT: Abdominal pain. HISTORY OF PRESENT ILLNESS: This is a 26-year-old G2, P1 at 8 weeks' of who presents to [facility] stating they are having mid epigastric abdominal pain that started yeste rday night at 3:00 a.m., which woke her up, and accompanied with nausea without any vomiting. Chrissy fiore was seen and evaluated at [facility] Emergency Room where she was found to have a lipase of 2948, beta hCG 233,000. Gallbladder ultrasound demonstrated gallbladder filled with calcified s tone which limits it evaluation. Gallbladder wall was not seen. Dilated common bile measuring at 8 mm. Gastroenterology was consulted from ER which accepted the patient for further evaluation. Ther e was no OB ultrasound done in the course in the emergency room which has been ordered by myself aft er I consulted the TAR LEVELER automation qtp tester. At this time, the patient continues to complain of abdominal dis comfort, no nausea, vomiting, or diarrhea. Patient denies any chest pain, shortness of breath. No headache, dizziness, lightheadedness. No change in visual acuity, diplopia, photophobia. Positive for abdominal pain, no neck pain, no restricted range of motion in upper and lower extremity or any other discomfort. PAST MEDICAL AND SURGICAL HISTORY: None. Patient is 8 weeks . MEDICATIONS: vitamin. SOCIAL HISTORY: Negative x3 for smoking, alcohol, illicit drugs. FAMILY HISTORY: Noncontributory. REVIEW OF SYSTEMS: As above per HPI, otherwise 12 review of systems was found to be negative. PHYSICAL EXAMINATION: VITAL SIGNS: Temperature 98.5, pulse was 61, respirations 18, blood pressure 101/54, oxygen 100% ro om air. GENERAL APPEARANCE: The patient is lying in bed comfortably without acute distress, awake, alert, o riented. He is able to answer my questions properly. EYES AND ENT: Conjunctivae and lids are normal. Pupils are normal. Extraocular normal. Hearing g rossly normal. Lips are normal. Oral mucosa is mildly dry. NECK: Supple. Trachea is midline. No lymphadenopathy. RESPIRATORY: Effort is normal. Clear to auscultate bilaterally. CARDIOVASCULAR: Normal S1, S2. Regular rhythm and rate. No murmur, no bruits, no edema. Peripher al pulses and radial pulses palpable. was normal CHEST: Normal expansion of thorax during inspiration. GASTROINTESTINAL: Abdomen is soft. Tenderness in midepigastric region. No guarding, no rebound. GENITOURINARY: Deferred. MUSCULOSKELETAL: Upper and lower extremities within normal limits. Full range of motion, strength 5/5 in both upper and lower extremities. NEUROLOGIC: Cranial nerves II through XII are grossly intact. PSYCHIATRIC: Normal judgment and insight. Alert and oriented x3. Mood and affect is normal. LABORATORY WORK AND IMAGING: Sodium 143, potassium 4.1, chloride 105, bicarbonate 28, BUN 9, creati nine 0.55, glucose 93. LFTs all within normal limits. Lipase 2948. HCG 233,000. WBC 10.8, hemogl obin 12.6, hematocrit 35.8, platelets 315. Urinalysis: Trace leukocyte esterase, otherwise negativ e. ASSESSMENT AND PLAN: 1. Gallstone pancreatitis with dilated common bile duct. Gastroenterology has been consulted. We will obtain MRCP and follow GI recommendation. Follow lipase levels in a.m. The patient is n.p.o., IV fluid has been initiated. 2. Eight weeks' , will continue vitamins. TAR LEVELER has been consulted. 3. For deep venous thrombosis prophylaxis, on sequential compression devices. 4. For gastrointestinal prophylaxis, not indicated at this time. 5. We will continue to monitor patient closely. Further recommendations, management and treatment as per clinical course. Dictated By: SERENITY SALCEDO/TARUN Conf#: [id number] DID#: [id number]
[2016-10-10] MEDS: D5W-0.45 NACL + KCL 20 MEQ 1,000 ML IV SCH ×3 (04:16→22:06)
[2016-10-10 06:24] LABS: ADD SCAN DIFF NO
[2016-10-10 06:28] LABS: BASOPHILS % 0.1 % (0.0-2.0); EOSINOPHILS # 0.2 10^3/ul (0.0-0.5); EOSINOPHILS % 2.6 % (0.0-7.0); HEMATOCRIT 31.1 % (37.0-47.0); HEMOGLOBIN 10.9 g/dl (12.0-16.0); LYMPHOCYTES # 1.7 10^3/ul (0.8-2.9); LYMPHOCYTES % 22.7 % (15.0-51.0); MEAN CORPUSCULAR HEMOGLOBIN 30.5 pg (29.0-33.0); MEAN CORPUSCULAR VOLUME 87.1 fl (82.0-101.0); MEAN PLATELET VOLUME 10.9 fl (7.4-10.4); MONOCYTE # 0.7 10^3/ul (0.3-0.9); MONOCYTES % 9.7 % (0.0-11.0); NEUTROPHIL # 4.9 10^3/ul (1.6-7.5); NEUTROPHILS % 64.5 % (39.0-77.0); PLATELET COUNT 250 10^3/UL (140-415); RED BLOOD COUNT 3.57 10^6/ul (4.20-5.40); RED CELL DISTRIBUTION WIDTH 12.5 % (11.5-14.5); WHITE BLOOD COUNT 7.6 10^3/ul (4.8-10.8)
[2016-10-10 06:37] LABS: ALBUMIN 3.1 g/dl (3.3-4.9)
[2016-10-10 06:38] LABS: POTASSIUM 3.7 mmol/L (3.5-5.1)
[2016-10-10 06:40] LABS: ALBUMIN/GLOBULIN RATIO 1.34; BILIRUBIN,INDIRECT 0.2 mg/dl (0-1.1); BILIRUBIN,TOTAL 0.2 mg/dl (0.2-1.3); CALCIUM 8.7 mg/dl (8.4-10.2); CREATININE 0.6 mg/dl (0.44-1.00); TOTAL PROTEIN 5.4 g/dl (6.1-8.1)
[2016-10-10 06:41] LABS: CHOL/HDL RATIO 2.3 RATIO
[2016-10-10 07:40] VITALS: BP 99/55; RESP 18
--- NOTE | 2016-10-10 11:03 | PN ---
Date/Time of Note Date/Time of Note DATE: 10/10/16 TIME: 10:51 Assessment/Plan VTE Prophylaxis VTE Prophylaxis Intervention: SCD's Lines/Catheters [facility] Saline Lock Urinary Cath still in place: No Assessment/Plan Assessment/Plan Assessment * Abdominal pain/nausea/vomiting Improved Gallstone pancreatitis Borderline dilated CBD 6 mm by MRCP/ NO CBD STONES Intrauterine 8 weeks aog Plan ERCP not indicated at this point in time clear liquids monitor amylase /lipase daily Subjective 24 Hr Interval Summary Free Text/Dictation * course reviewed with nurse * patient seen and examined * denies abdominal pain, nausea and vomiting * patient claims to be hungry, * MRCP 10/09/16 * Gallstones in the gallbladder. No evidence of cholecystitis. Borderline dilated common bile duct measuring 6 mm. No obstructing lesion visualized. . Otherwise unremarkable study. awaiting lipase results today Exam/Review of Systems Vital Signs Vitals Vital Signs Date Time Temp Pulse Resp B/P Pulse Ox O2 Delivery O2 Flow Rate FiO2 10/10/16 07:40 98.1 68 18 99/55 98 10/09/16 13:21 Room Air Intake and Output 10/09/16 10/09/16 10/10/16 15:00 23:00 07:00 Intake Total 0 ml 800 ml Balance 0 ml 800 ml Exam Constitutional: alert, oriented, well developed Eyes: nl conjunctiva, nl lids, nl sclera Respiratory: clear to auscultation, normal air movement Cardiovascular: regular rate and rhythm Gastrointestinal: bowel sounds, nl liver, spleen, non-tender, soft, No ascites, No distended, No firm, No hepatomegaly, No mass, No rebound or guarding, No splenomegaly Musculoskeletal: nl extremities to inspection Skin: nl turgor Results Result Diagram: 10/10/16 0600 10/10/16 0600 Results 24 hrs Laboratory Tests Test 10/10/16 06:00 White Blood Count 7.6 # Red Blood Count 3.57 L Hemoglobin 10.9 L Hematocrit 31.1 L Mean Corpuscular Volume 87.1 Mean Corpuscular Hemoglobin 30.5 Mean Corpuscular Hemoglobin Concent 35.0 Red Cell Distribution Width 12.5 Platelet Count 250 # Mean Platelet Volume 10.9 H Neutrophils % 64.5 Lymphocytes % 22.7 Monocytes % 9.7 Eosinophils % 2.6 Basophils % 0.1 Nucleated Red Blood Cells % 0.0 Neutrophils # 4.9 Lymphocytes # 1.7 Monocytes # 0.7 Eosinophils # 0.2 Basophils # 0.0 Nucleated Red Blood Cells # 0.0 Sodium Level 140 Potassium Level 3.7 Chloride Level 105 Carbon Dioxide Level 25 Anion Gap 14 Blood Urea Nitrogen 5 L Creatinine 0.60 Glucose Level 77 Calcium Level 8.7 Total Bilirubin 0.2 Direct Bilirubin 0.00 Indirect Bilirubin 0.2 Aspartate Amino Transf (AST/SGOT) 19 Alanine Aminotransferase (ALT/SGPT) 27 Alkaline Phosphatase 42 Total Protein 5.4 #L Albumin 3.1 L Globulin 2.30 Albumin/Globulin Ratio 1.34 Triglycerides Level 104 Cholesterol Level 133 LDL Cholesterol, Calculated 55 HDL Cholesterol 57 Cholesterol/HDL Ratio 2.3 Medications Medications Current Medications Potassium Chloride/Dextrose/ Sod Cl (D5-1/2ns + KCl 20 Meq) 1,000 ml @ 80 mls/ hr [id number] IV Last administered on 10/10/16 09:01; Admin Dose 80 MLS/HR; Start 10/09/16 at 15:46 Ondansetron HCl (Zofran Inj) 4 mg Q6H PRN IV NAUSEA AND/OR VOMITING; Start at 16:00 Acetaminophen (Tylenol Tab) 650 mg Q6H PRN PO PAIN LEVEL 1-3 OR FEVER Last administered on 10/10/16 09:53; Admin Dose 650 MG; Start 10/09/16 at 16:00 Acetaminophen (Tylenol Supp) [address] PAIN LEVEL 1-3 OR FEVER; Start 10/09/16 at 16:00 DENVER REBOLLEDO MD Oct 10, 2016 11:02
--- NOTE | 2016-10-10 13:27 | PN ---
Date/Time of Note Date/Time of Note DATE: 10/10/16 TIME: 13:25 Assessment/Plan VTE Prophylaxis VTE Prophylaxis Intervention: SCD's Lines/Catheters IV [facility]ter [facility]from [facility] Saline Lock Urinary Cath still in place: No Assessment/Plan Chief Complaint/Hosp Course Assessment and plan * Gallstone pancreatitis Borderline dilated CBD 6 mm by MRCP Combination Technician has been consulted, plan for ERCP tomorrow N.p.o., IV fluid - Intrauterine 8 weeks WAREHOUSE INSULATION WORKER has been consulted Continue vitamins SCD for DVT prophylaxis Problems: Subjective 24 Hr Interval Summary Free Text/Dictation Patient denies any chest pain or shortness of breath Denies of having any abdominal pain No nausea vomiting diarrhea Exam/Review of Systems Vital Signs Vitals Vital Signs Date Time Temp Pulse Resp B/P Pulse Ox O2 Delivery O2 Flow Rate FiO2 10/10/16 07:40 98.1 68 18 99/55 98 10/09/16 13:21 Room Air Intake and Output 10/09/16 10/09/16 10/10/16 15:00 23:00 07:00 Intake Total 0 ml 800 ml Balance 0 ml 800 ml Exam General: The patient is well-developed, Not in acute distress. HEENT: Atraumatic, normocephalic. The pupils are equal and round . Neck: Supple with full range of motion. Chest: Normal expansion of the thorax during inspiration Lungs: Clear to auscultation bilaterally Heart: Normal S1-S2, Regular rhythm and rate. Abdomen: Soft , nontender, nondistended , bowel sounds are present. Extremities: Normal to inspection, no edema no cyanosis Neurologic: Normal mental status,The patient is awake, alert and oriented . Results Result Diagram: 10/10/16 0600 10/10/16 0600 Results 24 hrs Laboratory Tests Test 10/10/16 06:00 White Blood Count 7.6 # Red Blood Count 3.57 L Hemoglobin 10.9 L Hematocrit 31.1 L Mean Corpuscular Volume 87.1 Mean Corpuscular Hemoglobin 30.5 Mean Corpuscular Hemoglobin Concent 35.0 Red Cell Distribution Width 12.5 Platelet Count 250 # Mean Platelet Volume 10.9 H Neutrophils % 64.5 Lymphocytes % 22.7 Monocytes % 9.7 Eosinophils % 2.6 Basophils % 0.1 Nucleated Red Blood Cells % 0.0 Neutrophils # 4.9 Lymphocytes # 1.7 Monocytes # 0.7 Eosinophils # 0.2 Basophils # 0.0 Nucleated Red Blood Cells # 0.0 Sodium Level 140 Potassium Level 3.7 Chloride Level 105 Carbon Dioxide Level 25 Anion Gap 14 Blood Urea Nitrogen 5 L Creatinine 0.60 Glucose Level 77 Calcium Level 8.7 Total Bilirubin 0.2 Direct Bilirubin 0.00 Indirect Bilirubin 0.2 Aspartate Amino Transf (AST/SGOT) 19 Alanine Aminotransferase (ALT/SGPT) 27 Alkaline Phosphatase 42 Total Protein 5.4 #L Albumin 3.1 L Globulin 2.30 Albumin/Globulin Ratio 1.34 Triglycerides Level 104 Cholesterol Level 133 LDL Cholesterol, Calculated 55 HDL Cholesterol 57 Cholesterol/HDL Ratio 2.3 Medications Medications Current Medications Potassium Chloride/Dextrose/ Sod Cl (D5-1/2ns + KCl 20 Meq) 1,000 ml @ 80 mls/ hr [id number] IV Last administered on 10/10/16 09:01; Admin Dose 80 MLS/HR; Start 10/09/16 at 15:46 Ondansetron HCl (Zofran Inj) 4 mg Q6H PRN IV NAUSEA AND/OR VOMITING; Start at 16:00 Acetaminophen (Tylenol Tab) 650 mg Q6H PRN PO PAIN LEVEL 1-3 OR FEVER Last administered on 10/10/16 09:53; Admin Dose 650 MG; Start 10/09/16 at 16:00 Acetaminophen (Tylenol Supp) 650 mg Q6H PRN ME PAIN LEVEL 1-3 OR FEVER; Start 10/09/16 at 16:00 SERENITY NEGRON MD Oct 10, 2016 13:26
[2016-10-10 20:49] VITALS: BP 101/55; RESP 18
[2016-10-11] MEDS: D5W-0.45 NACL + KCL 20 MEQ 1,000 ML IV SCH ×2 (05:16→11:50)
[2016-10-11 05:31] LABS: ADD SCAN DIFF NO
[2016-10-11 05:52] LABS: ALBUMIN 3.4 g/dl (3.3-4.9)
[2016-10-11 05:53] LABS: POTASSIUM 3.8 mmol/L (3.5-5.1)
[2016-10-11 05:55] LABS: ALBUMIN/GLOBULIN RATIO 1.21; BILIRUBIN,INDIRECT 0.3 mg/dl (0-1.1); BILIRUBIN,TOTAL 0.3 mg/dl (0.2-1.3); CREATININE 0.62 mg/dl (0.44-1.00); TOTAL PROTEIN 6.2 g/dl (6.1-8.1)
[2016-10-11 05:56] LABS: CALCIUM 8.6 mg/dl (8.4-10.2)
[2016-10-11 05:58] LABS: BASOPHILS % 0.3 % (0.0-2.0); EOSINOPHILS # 0.2 10^3/ul (0.0-0.5); EOSINOPHILS % 1.6 % (0.0-7.0); HEMATOCRIT 32.3 % (37.0-47.0); HEMOGLOBIN 11.3 g/dl (12.0-16.0); LYMPHOCYTES # 1.7 10^3/ul (0.8-2.9); MEAN CORPUSCULAR HEMOGLOBIN 30.5 pg (29.0-33.0); MEAN CORPUSCULAR VOLUME 87.1 fl (82.0-101.0); MEAN PLATELET VOLUME 11.2 fl (7.4-10.4); MONOCYTES % 10.9 % (0.0-11.0); NEUTROPHIL # 6.2 10^3/ul (1.6-7.5); NEUTROPHILS % 67.9 % (39.0-77.0); PLATELET COUNT 253 10^3/UL (140-415); RED BLOOD COUNT 3.71 10^6/ul (4.20-5.40); RED CELL DISTRIBUTION WIDTH 12.5 % (11.5-14.5); WHITE BLOOD COUNT 9.1 10^3/ul (4.8-10.8)
[2016-10-11 07:03] LABS: AMYLASE 57 U/L (11-123)
[2016-10-11 08:03] VITALS: BP 90/46; RESP 18
--- NOTE | 2016-10-11 12:37 | PDOCDIS ---
Discharge Instructions CONDITION Patient Condition: Good HOME CARE INSTRUCTIONS: Special Diet: CLEAR and advance as tolerated ACTIVITY: Activity Restrictions: Slowly Increase Activity Rest between Activity Avoid heavy lifting FOLLOW UP/APPOINTMENTS Appointments Follow up with OB/ RANCH COOK as out-pt SERENITY NEGRON MD Oct 11, 2016 12:37
[2016-10-11] MEDS ORDERED: CEPH-442 PO (12:46)
--- NOTE | 2016-10-11 13:25 | DS ---
DATE OF ADMISSION: 10/09/2016 DATE OF DISCHARGE: 10/11/2016 CONSULTANTS: 1. . 2. Dr. Terry Higgins. PROCEDURES: None. IMAGING: MRI of the abdomen showed gallstones in gallbladder, no evidence of cholecystitis. Border line dilated common bile duct measuring 6 mm, no obstructing lesion visualized. Otherwise, unremark able study. DISCHARGE DIAGNOSES: 1. Gallstone pancreatitis. Shelter Advocate was consulted. No indication for ERCP. The patient 's lipase is within normal limits. 2. Intrauterine at 8 weeks. GLASS UNLOADING EQUIPMENT TENDER was consulted. Continue vitamins. LABORATORY DATA: Today, sodium 139, potassium 3.8, chloride 105, bicarbonate 28, BUN 4, creatinine 0.62, glucose 82, calcium 8.6. LFTs all within normal limits. Lipase 97, amylase 57. WBC 9.1, hem oglobin 11.3, hematocrit 32.3, platelets 253. HOSPITAL COURSE: This is a very pleasant 26-year-old G2, P1, 8 weeks , who presents to [facility] stating having mid epigastric abdominal pain which started on 10/08/2016 an d worsened by 3:00 a.m. on 10/09/2016, which woke her up and accompanied with nausea without any vom iting. The patient was seen and evaluated at [facility] emergency room where her lipase wa s found to be [id number]. Gallbladder ultrasound demonstrated gallbladder filled with calcified stones wi th limited evaluation, common bile duct measuring at 8 mm. Shelter Advocate was consulted from ER . The patient's OB ultrasound was obtained, which showed a single live intrauterine gestation 8 wee ks 0 days menstrual age by ultrasound date, expected date of delivery of 05/21/2017, right ovary not visualized. The patient was seen and evaluated by instant potato processor and made n.p.o. IV fluid and pain medication was initiated. The patient's lipase was evaluated and MRCP was done, which demonst rated no evidence of cholecystitis, borderline dilated common bile duct measuring 6 mm, no obstructi ng lesion visualized. As per the finding in the abdominal MRI, no indication for ERCP was found and the patient was started on clear liquid diet and has been advanced as tolerated. Her lipase is wit hin normal limits. The pancreatitis is likely secondary to gallstone pancreatitis, which already alvarado s passed, although patient does have more gallstones and she needs to follow up with general surgery post-delivery for elective laparoscopic versus open cholecystectomy. CONDITION AT TIME OF DISCHARGE: Stable. VITAL SIGNS: Temperature 99.2, pulse 60, respirations 18, blood pressure 90/46, oxygen saturation 9 9% on room air. MEDICATIONS: 1. Tylenol. 2. Zofran. 3. Keflex. 4. vitamins. Dictated By: SERENITY SALCEDO/NTS Conf#: [id number] DID#: [id number]
--- NOTE | 2016-10-11 18:22 | PDOCDIS ---
Discharge Instructions DIAGNOSIS Discharge Diagnosis: Gall stone pancreatitis CONDITION Patient Condition: Stable HOME CARE INSTRUCTIONS: Special Diet: CLEAR and advance as tolerated ACTIVITY: Activity Restrictions: Slowly Increase Activity Rest between Activity SCHOOL/WORK RELEASE May return to School/Work on: Oct 15, 2016 May return to School/Work with: No Restrictions School/Work Release Comment: Please excuse the above named from work from . Thanks MARLON ALVES Oct 11, 2016 18:22
== END 2016-10-11 19:50 | disposition home or self-care (01) | DRG 781 ==
LOC: FTE 02:48 → MS2 10:41
PROVIDERS: ADMIT Family Medicine; ATTEND Family Medicine
DX: O99.611 Diseases of the digestive system complicating pregnancy, first trimester (principal); K85.10 Biliary acute pancreatitis without necrosis or infection; K83.8 Other specified diseases of biliary tract; O26.891 Other specified pregnancy related conditions, first trimester; O99.89 Other specified diseases and conditions complicating pregnancy, childbirth and the puerperium; K80.20 Calculus of gallbladder without cholecystitis without obstruction; R10.11 Right upper quadrant pain; R73.03 Prediabetes; Z3A.08 8 weeks gestation of pregnancy
CPT/HCPCS: 36415; 74181; 76705; 76801; 80053; 80061; 81001; 81003; 82150; 83690; 84702; 85025; 96374; J2270; J2405; J3480; J7030